=== PATIENT | female | born 1960 | race Caucasian/White ===

== ENCOUNTER 2019-01-30 11:58 | Day surgery (SDC) | payer OTHER ==
[~2019-01-30] VITALS: Ht 167.6 cm; Wt 77.1 kg
--- NOTE | 2019-01-30 13:48 | NUR ---
01/30/19 1348 Latanya De 1340 PT ARRIVED TO PACU WITH EYES OPEN AND TALKING TO RN. PT DENIES NAUSEA AND PAIN. PT REORINTED TO PACU AND PLAN OF CARE DISCUSSED WITH PT. VSS. 1345 PT RESTING WITH EYES CLOSED.
--- NOTE | 2019-01-30 14:51 | OR ---
[facility] [address], [place] [address] Signed DATE OF OPERATION: 01/30/2019 SURGEON: Kurt Steele MD PREOPERATIVE DIAGNOSES: 1. Screening colonoscopy. 2. Family history of colon cancer in paternal aunt. POSTOPERATIVE DIAGNOSIS: Sigmoid diverticulosis. No polyps. PROCEDURE: Total colonoscopy to cecum. ANESTHESIA: Intravenous sedation, fentanyl 100 mcg and versed 5 mg. INDICATION: This 58-year-old white woman is a patient of Dr. Court Guzman. This is her initial colon screening evaluation. She has no symptoms of bleeding, diarrhea, or constipation. She does have family history of colon cancer in a paternal aunt. She is admitted at this time to undergo colonoscopy. She understands the risks of bleeding, infection, and perforation. 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 She herself has never had clotting issues. DESCRIPTION OF PROCEDURE: The patient was brought to the endoscopy suite and placed in lateral decubitus position, given intravenous sedation to a point of slurred speech and nystagmus. Digital rectal examination was normal. The Olympus flexible endoscope was passed into the rectum and manipulated throughout the colon ultimately intubating the cecum itself. The ileocecal valve and appendiceal orifice were normal. The scope was withdrawn from that point. Examination throughout showed no sign of polyps or colitis, but did confirm diverticular changes of the sigmoid and left colon. Retroflexed view of the rectum was normal. The scope was removed. The patient was taken to recovery room in good condition. CONCLUDING DIAGNOSIS: Diverticulosis. No evidence of polyps. Electronically Signed By: KURT STEELE MD 01/30/19 1451 PATIENT NAME: KRISTEN SKAGGS OPERATIVE REPORT DATE OF : 60 REPORT #: [id number] PHYSICIAN: KURT STEELE MD PCP: COURT GUZMAN MD REPORT IS CONFIDENTIAL AND NOT TO BE RELEASED WITHOUT AUTHORIZATION [facility] [address], [place] [address] Signed PLAN: Recommend high-fiber diet. Repeat colonoscopy in 10 years or sooner if clinically indicated. She will return to the ongoing care of Dr. Court Guzman. MD AISHA Magaña/MODL /[id number] cc: Court Guzman MD Copies: ~ Electronically Signed By: KURT STEELE MD 01/30/19 1451 PATIENT NAME: KRISTEN SKAGGS OPERATIVE REPORT DATE OF : 60 REPORT #: [id number] PHYSICIAN: KURT STEELE MD PCP: COURT GUZMAN MD REPORT IS CONFIDENTIAL AND NOT TO BE RELEASED WITHOUT AUTHORIZATION
== END 2019-01-30 14:18 | disposition home or self-care (01) ==
LOC: DS 11:58 → OPS 11:58 → DS 13:00 → OPS 13:00
PROVIDERS: Surgery
PROC: 0DJD8ZZ Inspection of Lower Intestinal Tract, Via Natural or Artificial Opening Endoscopic (ICD-10-PCS; principal; 2019-01-30 13:00)
DX: Z12.11 Encounter for screening for malignant neoplasm of colon (principal); K57.30 Diverticulosis of large intestine without perforation or abscess without bleeding; Z83.71 Family history of colonic polyps; Z83.2 Family history of diseases of the blood and blood-forming organs and certain disorders involving the immune mechanism
CPT/HCPCS: 99153; G0500; J2250; J3010; J7120